=== PATIENT | male | born 1990 | race Two or more races ===

== ENCOUNTER 2017-05-07 17:32 | Inpatient (IN) | payer BC, OTHER ==
[~2017-05-07] VITALS: Ht 182.9 cm; Wt 81.6 kg
[~2017-05-07 17:32] MED LIST: Baclofen PO; CLON0.1T14 PO; Cephalexin Monohydrate PO; DICY20TA28 PO; Gabapentin PO; HYDR-3895 PO; IBUP-1955 PO; LACT1CAP57 PO; METH-33 PO
[2017-05-07] MEDS ORDERED: MAG HYDROX/AL HYDROX/SIMETH 30 ML LIQUID UDC PO PRN (18:15)
[2017-05-07] MEDS ORDERED: BUPRENORPHINE HCL 2 MG TAB.SUBL SL PRN (18:15)
[2017-05-07] MEDS ORDERED: MAGNESIUM HYDROXIDE 30 ML LIQUID UDC PO PRN (18:15)
[2017-05-07] MEDS ORDERED: LORAZEPAM 2 MG/1 ML VIAL IM PRN (18:15)
[2017-05-07] MEDS ORDERED: ONDANSETRON 4 MG/2 ML VIAL IV PRN (18:15)
[2017-05-07] MEDS ORDERED: ACETAMINOPHEN 325 MG TABLET PO PRN (18:15)
[2017-05-07] MEDS ORDERED: LORAZEPAM 1 MG TABLET PO PRN (18:15)
[2017-05-07] MEDS ORDERED: MIRALAX 17 GM POWD.PACK PO PRN (18:15)
[2017-05-07] MEDS ORDERED: LOPERAMIDE HCL 2 MG CAPSULE PO PRN ×2 (18:15)
[2017-05-07] MEDS ORDERED: DICYCLOMINE HCL 20 MG TABLET PO PRN (18:15)
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
[2017-05-07] MEDS: BUPRENORPHINE HCL 2 MG TAB.SUBL SL SCH ×2 (19:00→22:00)
[2017-05-07 20:00] VITALS: BP 113/67
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
--- NOTE | 2017-05-07 20:03 | NUR ---
PRN Zofran Patient reports episode of vomiting and still noted with nausea. Abdomen soft & non-distended. No diarrhea/constipation noted. PRN Zofran administered as ordered. Will continue to monitor.
--- NOTE | 2017-05-07 20:31 | NUR ---
PRN Reassessment Pt verbalized improved nausea after medication administration. No episode of vomiting noted at this time. Will continue to monitor patient.
[2017-05-07] MEDS ORDERED: GABAPENTIN 300 MG CAPSULE PO SCH (21:00)
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
[2017-05-07] MEDS: LORAZEPAM 1 MG TABLET PO SCH ×2 (21:11→22:47)
[2017-05-07 22:45] VITALS: BP 112/79
[2017-05-07] MEDS: CLONIDINE HCL 0.1 MG TABLET PO PRN (22:57)
[2017-05-07] MEDS: GABAPENTIN 400 MG CAPSULE PO SCH (22:57)
--- NOTE | 2017-05-07 22:57 | NUR ---
PRN Clonidine and Bentyl Patient is diaphoretic, reports chills, stomach cramps and anxiety. Vitals taken. B/P 112/79, IA 97. PRN Clonidine & Bentyl administered as ordered. Will continue to monitor patient.
--- NOTE | 2017-05-07 23:00 | NUR ---
IV Insertion 22 Gauge Peripheral IV inserted on right upper arm. Insertion successful after two tries with good blood return. Iv access is patent and flushes easily with no c/o discomfort from pt. Tegaderm dressing applied. Started pt on 0.9%NS @ 125 ml/hr for hydration as ordered. Pt stable at this time.
[2017-05-07] MEDS: PANTOPRAZOLE SODIUM 40 MG VIAL IV SCH (23:21)
[2017-05-07] MEDS: IV NS 1000 ML 1,000 ML IV PRN (23:23)
[2017-05-07] MEDS ORDERED: CHLO750T PO (23:56)
--- NOTE | 2017-05-07 23:57 | NUR ---
PRN Reassessment Patient verbalized decreased in sweating & chills, reports relief from stomach cramps but still noted with anxious/irritable mood. Safety measures in place. Will continue to monitor patient.
[2017-05-08] VITALS: BP 117/68
[2017-05-08 00:08] LABS: *AMPHETAMINE, URINE POSITIVE (NEGATIVE); *BARBITURATE, URINE NEGATIVE (NEGATIVE); *CANNABINOID, URINE POSITIVE (NEGATIVE); *COCCAINE, URINE POSITIVE (NEGATIVE); *OPIATE, URINE POSITIVE (NEGATIVE); *PHENCYCLIDINE SCREEN,URINE NEGATIVE (NEGATIVE)
[2017-05-08 00:28] LABS: WHITE BLOOD COUNT (AUTO) 7.3 K/uL (3.6-10.2)
[2017-05-08 00:29] LABS: BASOPHILS % (AUTO) 0.5 % (0.0-2.0); EOSINOPHILS # (AUTO) 0.2 K/uL (0.0-0.7); EOSINOPHILS % (AUTO) 2.5 % (0.0-7.0); HEMOGLOBIN 13.4 g/dL (12.5-16.3); LYMPHOCYTES # (AUTO) 1.9 K/uL (20.0-40.0); LYMPHOCYTES % (AUTO) 25.8 % (20.5-51.5); MEAN CORPUSCULAR HEMOGLOBIN 29.7 uug (23.8-33.4); MEAN CORPUSCULAR HGB CONC 35 g/dL (32.5-36.3); MEAN CORPUSCULAR VOLUME 84.2 fL (73.0-96.2); MONOCYTES # (AUTO) 0.7 K/uL (2.0-10.0); MONOCYTES % (AUTO) 9.3 % (0.0-11.0); NEUTROPHILS # (AUTO) 4.5 K/uL (1.8-8.9); NEUTROPHILS % (AUTO) 61.9 % (38.5-71.5); PLATELET COUNT (AUTO) 228 K/uL (152-348); RED BLOOD CELL COUNT(AUTO) 4.52 MIL/uL (4.06-5.63)
[2017-05-08] MEDS: LORAZEPAM 1 MG TABLET PO PRN ×2 (00:29→22:44)
[2017-05-08] MEDS: ONDANSETRON ODT 4 MG TAB.RAPDIS SL PRN ×3 (00:30→20:40)
--- NOTE | 2017-05-08 00:30 | NUR ---
PRN Ativan & Zofran SL Patient came back from smoking break via wheelchair and reports feelings of nausea, dizziness & anxiety. Patient stated " I feel like I'm gonna have a panic attack. Vitals WNL. COWS 14 CIWA 17. PRN Ativan 2mg and Zofran SL administered as ordered. Pt was offered Subutex but refused, pt stated "I think its still too early to take it" Explained pt that pt is already withdrawing and Subutex will help him feel better but still refused. Dr. Yanez is aware. Will continue to monitor patient.
[2017-05-08 00:48] LABS: ALANINE AMINOTRANSFERASE 63 U/L (16-63); ALKALINE PHOSPHATASE 93 U/L (50-136); ASPARTATE AMINOTRANSFERASE 51 U/L (15-37); BILIRUBIN,TOTAL 0.7 mg/dL (0.2-1.0); CARBON DIOXIDE 28 mmol/L (21-32); CHLORIDE 97 mmol/L (98-107); CREATININE 0.9 mg/dL (0.6-1.3); GLUCOSE 83 mg/dL (74-106); MAGNESIUM 1.7 mg/dL (1.8-2.4); POTASSIUM 3.6 mmol/L (3.5-5.1); TOTAL PROTEIN, SERUM 7.5 g/dL (6.4-8.2); UREA NITROGEN, BLOOD 17 mg/dL (7-18)
--- NOTE | 2017-05-08 01:30 | NUR ---
PRN Reassessment Patient asleep in bed at this time and appears comfortable. No facial grimacimg noted. Vitals noted WNL. Unabel to assess COWS/CIWA at this time. IV continuously running at 125cc/hr. Will continue to monitor patient.
[2017-05-08 01:36] LABS: ETHANOL < 3 MG/DL (0-0)
[2017-05-08 04:00] VITALS: BP 100/48
--- NOTE | 2017-05-08 07:21 | NUR ---
End of Shift Note: Patient is a 26 y.o male admitted yesterday 05/07/17 for medically supervised withdrawal from multi substance use. Patient remained alert & oriented x4. Patient presented with diaphoresis, chills, body aches, nausea/vomiting, anxiety, fine tremors and sensitivity to light. Patient started on Ativan taper and tolerated well. Initial COWS 13 CIWA 16. Pt refused to start Subutex taper, per pt "it's still too early to start". Pt received PRN Zofran IV, Clonidine, Bentyl, Ativan, & Zofran SL during my shift and were effective. Last COWS 14 CIWA 17 at 0000. Patient has 22 gauge IV access with running 0.9% NS at 125 cc/hr patent and intact. Pt has an surgical wound on his left foot with dressing intact. Keep foot elevated while in bed. Patient ambulates via wheelchair. Pt's vitals remained WNL. Will continue to closely monitor s/s of withdrawal. Pt slept for a total of 4 hours. Fluid intake: 1096 ml. Voided 1x with no bowel movement during my shift. All needs attended. Safety measures in place. Will endorse to day shift nurse.
--- NOTE | 2017-05-08 07:56 | NUR ---
Start of shift- Pt is a 26 y/o male admitted for medically supervised withdrawal from multi substance use. Patient remained alert & oriented x4. Patient presented with diaphoresis, chills, body aches, nausea/vomiting, anxiety, fine tremors and sensitivity to light. Patient started on Ativan taper and tolerated well. Pt refused Subutex at this time. At 2400 last COWS 14 CIWA 17. Pt received PRN Zofran IV, Clonidine, Bentyl, Ativan, & Zofran SL last night. Pt has #22 gauge IV access with running 0.9% NS at 125 cc/hr patent and intact. Pt has an surgical wound on his left foot with dressing intact. Keep foot elevated while in bed. Patient ambulates via wheelchair. Pt's vitals remained WNL. NKA, FULL CODE. Hx seizures. Pt slept for a total of 4 hours. Safety measures in place. Will continue to closely monitor s/s of withdrawal.
[2017-05-08 08:00] VITALS: BP 100/50
[2017-05-08] MEDS: BUPRENORPHINE HCL 2 MG TAB.SUBL SL SCH ×4 (09:00→21:03)
[2017-05-08] MEDS ORDERED: TUBERCULIN,PURIF.PROT.DERIV. 5 TU/0.1 ML TEST ID ONE (09:00)
[2017-05-08] MEDS ORDERED: MAGNESIUM OXIDE 400 MG TABLET PO ONE (09:00)
[2017-05-08] MEDS: IV NS 1000 ML 1,000 ML IV PRN (09:17)
[2017-05-08] MEDS: PANTOPRAZOLE SODIUM 40 MG VIAL IV SCH (09:19)
--- NOTE | 2017-05-08 09:20 | NUR ---
Pt refused Subutex 4 mg. COWS 11.
--- NOTE | 2017-05-08 09:21 | NUR ---
PRN MOTRIN 600MG, ROBAXIN 750MG- Pt c/o generalized pain #7/10 over body and left foot. C/O myalgias.
[2017-05-08] MEDS: IBUPROFEN 600 MG TABLET PO PRN (09:27)
[2017-05-08] MEDS: METHOCARBAMOL 750 MG TABLET PO PRN ×2 (09:27→21:04)
[2017-05-08] MEDS: LORAZEPAM 1 MG TABLET PO SCH ×4 (09:27→21:03)
[2017-05-08] MEDS: GABAPENTIN 400 MG CAPSULE PO SCH (09:27)
--- NOTE | 2017-05-08 10:20 | NUR ---
Reassess - pt asleep resp even and unlabored. Arousable to name and light touch. Lynn, pt states pain now #4/10, Aaron, pt reports myalgias improved.
[2017-05-08 12:00] VITALS: BP 103/52
--- NOTE | 2017-05-08 14:34 | NUR ---
LATE MEDICATION ADMINISTRATION- Ativan 2 mg and Subutex 4 mg given later per patient request. Pt was worried and did not want to start Subutex too soon. Then felt ready at 1430.
--- NOTE | 2017-05-08 14:45 | NUR ---
PRN TORODOL 30 MG for pain in left foot #8
[2017-05-08] MEDS: KETOROLAC TROMETHAMINE 30 MG INJ IM PRN ×2 (14:46→22:46)
--- NOTE | 2017-05-08 15:45 | NUR ---
Reassess Toradol- Pt states pain now #6-7/10. Slightly improved.
[2017-05-08 16:00] VITALS: BP 95/54
--- NOTE | 2017-05-08 16:15 | NUR ---
PRN ZOFRAN 4 MG SL- pt nauseated and pale. Put patient from wheel chair to bed.
--- NOTE | 2017-05-08 17:15 | NUR ---
Reassess Zofran- pt asleep in bed, arousable to name and light touch. No emesis, nausea improved.
--- NOTE | 2017-05-08 17:43 | NUR ---
HOLD ATIVAN & SUBUTEX- Pt too sedated, responds to name and gentle touch. BP low 95/54, HR78. Resp even and unlabored. Resp 16, sat 100%
--- NOTE | 2017-05-08 18:44 | NUR ---
End of shift- Pt is a 26 y/o male admitted for medically supervised withdrawal from multi substance use. Patient presented today with diaphoresis, chills, body aches, nausea/vomiting, anxiety, fine tremors and sensitivity to light. Patient started on Ativan taper and tolerated well. Pt refused morning Subutex but took afternoon dose. At 1600 last COWS 9 CIWA 11. Pt received PRN Zofran SL, Motrin, Robaxin, and Toradol IM. Pt still has nausea no episodes of emesis. Appetite poor today. Pt has #22 gauge IV access right upper arm infusing 0.9% NS at 125 cc/hr patent and intact. Pt has an surgical wound on his left foot with dressing intact. Pt refuses for staff to assess wound. Keeps foot elevated while in bed. Patient uses wheelchair to go to [facility] and move around the unit. Pt's vitals remained WNL. NKA, FULL CODE. Hx seizures, seizure precautions. PO fluid intake 1949ml, void X2. No BM. Safety measures in place. Will endorse to PM shift.
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
[2017-05-08 20:00] VITALS: BP 101/60
--- NOTE | 2017-05-08 21:00 | NUR ---
PRN Zofran, ROBAXIN Pt. complains of nausea, headache and muscle spasm. PRN Zofran, ROBAXIN given as ordered. Safety measures in place : bed on lowest position with side rails x2 up for safety, call light within reach. Will continue to monitor closely and offer help.
[2017-05-08] MEDS: GABAPENTIN 300 MG CAPSULE PO SCH (21:04)
--- NOTE | 2017-05-08 22:00 | NUR ---
RE-ASSESSMENT ANNABELLE Worthy Pt. is sleeping, RR=16, unlabored and even . Safety measures in place : bed on lowest position with side rails x2 up for safety, call light within reach. Will continue to monitor closely and offer help.
--- NOTE | 2017-05-08 22:00 | NUR ---
Left foot assessment - REFUSED ; IV drip - REFUSED. Pt. refused Left foot assessment and possible dressing change. He states he has appointment for dressing change with his surgeon at [facility] on May 10, 2017. He will talk about this appointment to tomorrow in A.M. Pt. also refused IV drip till A.M. Educated patient regarding the importance of compliance to treatment and medication regime. Encouraged patient to participate in group therapies and verbalize feelings.
[2017-05-08] MEDS ORDERED: BUPRENORPHINE HCL 2 MG TAB.SUBL SL ONE (22:30)
--- NOTE | 2017-05-08 22:30 | NUR ---
PRN ATIVAN (CIWA=15), TORADOL IM, ONCE - SUBUTEX 4mg (COWS=13) Pt. is restless, agitated, cont. asking for additional dose of Subutex, CIWA=15, COWS=13 complains of nausea, headache pain in the left leg 8/. PRN ATIVAN (CIWA=15), TORADOL IM, ONCE - SUBUTEX 4mg (COWS=13) given as ordered. Safety measures in place : bed on lowest position with side rails x2 up for safety, call light within reach. Will continue to monitor closely and offer help.
--- NOTE | 2017-05-08 23:30 | NUR ---
RE-ASSESSMENT ATIVAN (CIWA=15), TORADOL IM, ONCE - SUBUTEX 4mg (COWS=13) Pt. is sleeping, RR=16, unlabored and even . Safety measures in place : bed on lowest position with side rails x2 up for safety, call light within reach. Will continue to monitor closely and offer help.
[2017-05-09 04:00] VITALS: BP 95/65
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
[2017-05-09] MEDS: PANTOPRAZOLE SODIUM 40 MG TABLET.DR PO SCH (07:15)
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
[2017-05-09 08:00] VITALS: BP 121/66
[2017-05-09] MEDS: KETOROLAC TROMETHAMINE 30 MG INJ IM PRN ×2 (08:21→15:05)
[2017-05-09] MEDS: METHOCARBAMOL 750 MG TABLET PO PRN (08:21)
[2017-05-09] MEDS: GABAPENTIN 300 MG CAPSULE PO SCH ×3 (08:21→21:40)
[2017-05-09] MEDS: ONDANSETRON ODT 4 MG TAB.RAPDIS SL PRN ×2 (08:22→16:14)
[2017-05-09] MEDS: LORAZEPAM 1 MG TABLET PO SCH ×3 (08:22→21:40)
[2017-05-09] MEDS: BUPRENORPHINE HCL 2 MG TAB.SUBL SL SCH ×3 (08:23→21:41)
--- NOTE | 2017-05-09 08:29 | NUR ---
PRN TORADOL 30 MG IM for pain #8-9/10 in left foot and generalized body pain. PRN ROBAXIN 750 MG PO for malaise and general body aches. PRN ZOFRAN 4 MG SL for nausea. No emesis.
--- NOTE | 2017-05-09 09:30 | NUR ---
Reassess Toradol, pt states pain not resolved, still #8/10. Robaxin not effective per Pt, still has body aches. Zofran minimally affective, still has some nausea. Offered Tylenol PRN he declined at this time.
[2017-05-09 10:08] LABS: HEPATITIS B SURFACE AG Negative (Negative)
[2017-05-09 11:15] LABS: BASOPHILS # (AUTO) 0.1 K/uL (0.0-8.0); BASOPHILS % (AUTO) 0.7 % (0.0-2.0); EOSINOPHILS # (AUTO) 0.4 K/uL (0.0-0.7); EOSINOPHILS % (AUTO) 4.9 % (0.0-7.0); HEMATOCRIT 38.7 % (36.7-47.1); HEMOGLOBIN 13.4 g/dL (12.5-16.3); LYMPHOCYTES # (AUTO) 2.4 K/uL (20.0-40.0); LYMPHOCYTES % (AUTO) 29.7 % (20.5-51.5); MEAN CORPUSCULAR HEMOGLOBIN 29.8 uug (23.8-33.4); MEAN CORPUSCULAR HGB CONC 35 g/dL (32.5-36.3); MEAN CORPUSCULAR VOLUME 86.3 fL (73.0-96.2); MONOCYTES # (AUTO) 0.6 K/uL (2.0-10.0); MONOCYTES % (AUTO) 7.8 % (0.0-11.0); NEUTROPHILS # (AUTO) 4.6 K/uL (1.8-8.9); NEUTROPHILS % (AUTO) 56.9 % (38.5-71.5); PLATELET COUNT (AUTO) 208 K/uL (152-348); RED BLOOD CELL COUNT(AUTO) 4.48 MIL/uL (4.06-5.63); WHITE BLOOD COUNT (AUTO) 8.1 K/uL (3.6-10.2)
--- NOTE | 2017-05-09 11:20 | NUR ---
Pt irritable, labile, loud and swearing at staff. Requests extra dose of Subutex. Does not like taper protocol. Pt spoke to Dr. Yanez, agreed to have labs drawn then extra medication will be ordered. Pt spoke to Shruti, and then went to smoke. Calmer, but still upset.
[2017-05-09] MEDS ORDERED: BUPRENORPHINE HCL 2 MG TAB.SUBL SL ONE (11:30)
[2017-05-09 11:35] LABS: BILIRUBIN,DIRECT 0.1 mg/dL (0.0-0.2); BILIRUBIN,TOTAL 0.5 mg/dL (0.2-1.0); MAGNESIUM 1.8 mg/dL (1.8-2.4); POTASSIUM 4.5 mmol/L (3.5-5.1); TOTAL PROTEIN, SERUM 6.9 g/dL (6.4-8.2)
[2017-05-09 12:00] VITALS: BP 94/58
[2017-05-09 14:52] VITALS: BP 100/52
--- NOTE | 2017-05-09 15:08 | NUR ---
PRN TORADOL 30MG IM for left ankle pain #9/10.
--- NOTE | 2017-05-09 15:25 | NUR ---
Left ankle surgical site- Pt allowed nurse to look at surgical incision. The surgical site has sutures 8 cm along base of foot and 6 cm curved up side of foot. Skin is dry and peeling. Part of incision exposed, red, yellow pus. Skin has seperated from the sutures. Incision site slight odor. Swab taken for culture. Non stick dressing applied, wrapped with Kerlex gauze. Reapplied foot splint and wraped venu bandage around to hold dressing in place. MD notified insicion site was assessed.
[2017-05-09 16:00] VITALS: BP 93/58
--- NOTE | 2017-05-09 16:00 | NUR ---
Reassess Toradol- Pt pain decreased to #7/10. Effective.
--- NOTE | 2017-05-09 16:15 | NUR ---
PRN ZOFRAN 4 MG SL for nausea. No emesis.
--- NOTE | 2017-05-09 17:17 | NUR ---
Reassess Zofran- Pt asleep, resp even and unlabored, VSS. No emesis.
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
[2017-05-09 20:00] VITALS: BP 95/60
[2017-05-09] MEDS: diphenhydrAMINE 50 MG CAPSULE PO PRN (21:40)
[2017-05-09] MEDS: CLONIDINE HCL 0.1 MG TABLET PO PRN (21:41)
[2017-05-10] VITALS: BP 98/62
--- NOTE | 2017-05-10 | NUR ---
NURSING NOTES : Pt. took all his evening medication at midnight, previously refused.He agrees with IV drip, NS at 125ml/h re-started. Pt. ate his dinner with 500ml liquids. He also went smoke on the wheelchair and then went to the bed. The room is dirty and nasty, cloth and linens are everywhere on the floor, the bed is unmade.
--- NOTE | 2017-05-10 | NUR ---
PRN CATAPRES, BENADRYL Pt. complains of difficulty falling asleep, insomnia, increased level of anxiety. PRN CATAPRES, BENADRYL given as ordered. Safety measures in place : bed on lowest position with side rails x2 up for safety, call light within reach. Will continue to monitor closely and offer help.
--- NOTE | 2017-05-10 01:00 | NUR ---
RE-ASSESSMENT AILEEN ROACH Pt. is sleeping, RR=16, unlabored and even . Safety measures in place : bed on lowest position with side rails x2 up for safety, call light within reach. Will continue to monitor closely and offer help.
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
[2017-05-10] MEDS: PANTOPRAZOLE SODIUM 40 MG TABLET.DR PO SCH (07:19)
[2017-05-10 08:00] VITALS: BP 113/57
--- NOTE | 2017-05-10 08:20 | NUR ---
START OF SHIFT: RECEIVED PT LAYING IN BED ASLEEP. HE IS EASILY AROUSED AND SHOUTS" LEAVE ME ALONE AND LET ME SLEEP". WILL ALLOW PT TO SLEEP AND ATTEMPT ASSESSMENT AND MED ADMINISTRATION A BIT LATER. BED LOCKED AND LOW. CALL FLETCHER IN REACH.
[2017-05-10] MEDS ORDERED: BUPRENORPHINE HCL 2 MG TAB.SUBL SL SCH (09:00)
[2017-05-10] MEDS ORDERED: LORAZEPAM 1 MG TABLET PO SCH ×2 (09:00→21:00)
--- NOTE | 2017-05-10 10:00 | NUR ---
Therapist prompted client about group times. Client stated he will attend groups today.
--- NOTE | 2017-05-10 10:05 | NUR ---
PT IS A/O X 4. HE PRESENTS WITH ANGRY MOOD AND AGITATED AFFECT. ATIVAN/SUBUTEX TAPER IN PROGRESS TO MANAGE S/S OF W/D WHICH HE REPORTS BEING BODY ACHES,CHILLS,SWEATS,RESTLESSNESS, IRRITABILITY AND ANXIETY. COWS 8 CIWA 6. MEDICATED ORDERED. HE IS REFUSING IV FLUIDS AND STATES HE WILL INCREASE PO FLUIDS. SX PRECAUTIONS IN PLACE. ENCOURAGED GROUP ATTENDANCE TO IMPROVE COPING SKILLS AND PREVENT RELAPSE. WILL CONTINUE TO MONITOR AND MANAGE S/S OF W/D.
[2017-05-10] MEDS: GABAPENTIN 300 MG CAPSULE PO SCH ×3 (10:10→21:09)
[2017-05-10] MEDS: ONDANSETRON ODT 4 MG TAB.RAPDIS SL PRN (11:11)
[2017-05-10] MEDS: KETOROLAC TROMETHAMINE 30 MG INJ IM PRN ×2 (11:12→21:37)
--- NOTE | 2017-05-10 11:15 | NUR ---
PRN PT REPORTS NAUSEA AND PAIN TO L FOOT 8/10. HE DENIES VOMITING. PRN ZOFRAN ODT AND PRN TORADOL IM ADMINISTERED. WILL MONITOR EFFECTIVENESS.
[2017-05-10 12:00] VITALS: BP 116/75
--- NOTE | 2017-05-10 12:15 | NUR ---
PT STATES THE ZOFRAN WAS EFFECTIVE.HE REPORTS THE TORADOL WAS ONLY MILDLY EFFECTIVE. PAIN 6/10 ON SCALE.
--- NOTE | 2017-05-10 12:30 | NUR ---
IV FLUIDS DISCONTINUED PER MD. SALINE LOCK LEFT IN PLACE PER PHILOSOPHY LECTURER.
[2017-05-10] MEDS: LORAZEPAM 1 MG TABLET PO SCH ×2 (12:51→17:47)
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
[2017-05-10] MEDS: LORZONE PO PRN (14:32)
[2017-05-10] MEDS: IBUPROFEN 600 MG TABLET PO PRN (14:33)
[2017-05-10] MEDS: BUPRENORPHINE HCL 2 MG TAB.SUBL SL SCH ×2 (14:35→21:08)
--- NOTE | 2017-05-10 14:35 | NUR ---
WOUND CLEANSED AND DRESSING CHANGES WITH WOUND NURSE ASSISTING. PRN MOTRIN AND LORZONE GIVEN FOR PAIN 08/31. WILL MONITOR EFFECTIVENESS OF PRN.
[2017-05-10] MEDS ORDERED: BUPRENORPHINE HCL 2 MG TAB.SUBL SL PRN (14:45)
[2017-05-10 16:00] VITALS: BP 114/63
[2017-05-10] MEDS ORDERED: LORAZEPAM 1 MG TABLET PO ONE (18:45)
[2017-05-10] MEDS ORDERED: HYDROXYZINE PAMOATE 25 MG CAPSULE PO PRN (18:45)
--- NOTE | 2017-05-10 18:50 | NUR ---
ONE TIME DOSE ATIVAN 2 MG PO PER MD FOR S/S OF W/D WHICH INCLUDE AGITATION AND ANXIETY. CIWA 11. WILL ENDORSE EFFECTIVENESS TO ONCOMING NIGHT NURSE.
--- NOTE | 2017-05-10 19:04 | NUR ---
END OF SHIFT: PT CONTINUES ON SUBUTEX/ATIVAN TAPER TO MANAGE S/S OF W/D. HE C/O BODY ACHES,NAUSEA,CHILLS SWEATS AND PT STAYED IN BED MOST OF SHIFT. ONE TIME DOSE OF ATIVAN GIVEN PER MD FOR AGITATION AND ANXIETY CIWA 11. LAST COWS 10. WOUND CONSULT AND DRESSING CHANGE DONE. ZOFRAN GIVEN PRN FOR NAUSEA THIS A.M. AND WA EFFECTIVE. PAIN REPORTED TO L FOOT. TORADOL IM PRN AND MILDLY EFFECTIVE. WILL PASS SHIFT REPORT TO ONCOMING TO ELECTRIC SHAVER MECHANIC NURSE.
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
[2017-05-10 20:00] VITALS: BP 120/71
--- NOTE | 2017-05-10 21:00 | NUR ---
PRN VISTARIL, BENADRYL, TORADOL Pt. complains of difficulty falling asleep, insomnia, increased level of anxiety, pain in the left leg 8/10. PRN VISTARIL, BENADRYL, TORADOL given as ordered. Safety measures in place : bed on lowest position with side rails x2 up for safety, call light within reach. Will continue to monitor closely and offer help.
[2017-05-10] MEDS: diphenhydrAMINE 50 MG CAPSULE PO PRN (21:09)
[2017-05-10] MEDS: CLONIDINE HCL 0.1 MG TABLET PO SCH (21:09)
[2017-05-10] MEDS: BACLOFEN 10 MG TABLET PO SCH (21:09)
--- NOTE | 2017-05-10 22:00 | NUR ---
RE-ASSESSMENT VISTARIL, BENADRYL, TORADOL Pt. is sleeping, RR=16, unlabored and even . Safety measures in place : bed on lowest position with side rails x2 up for safety, call light within reach. Will continue to monitor closely and offer help.
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
[2017-05-11] MEDS: PANTOPRAZOLE SODIUM 40 MG TABLET.DR PO SCH (07:00)
--- NOTE | 2017-05-11 07:30 | NUR ---
START OF SHIFT PT IS LAYING IN BED WITH EYES CLOSED AND APPEARS TO BE SLEEPING. AROUSABLE TO NAME, HOWEVER CLOSED EYES AND DID NOT RESPOND. RESPIRATIONS EVEN AND UNLABORED. SIDE RAILS UPX2, BED IN LOWEST POSITION. CALL LIGHT WITHIN REACH. SAFETY MEASURES IN PLACE. WILL CONTINUE TO MONITOR.
[2017-05-11 08:00] VITALS: BP 97/60
[2017-05-11] MEDS ORDERED: BUPRENORPHINE HCL 2 MG TAB.SUBL SL SCH (09:00)
[2017-05-11] MEDS ORDERED: LORAZEPAM 1 MG TABLET PO SCH ×3 (09:00→21:00)
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
[2017-05-11] MEDS: BACLOFEN 10 MG TABLET PO SCH (09:43)
[2017-05-11] MEDS: GABAPENTIN 300 MG CAPSULE PO SCH ×3 (09:44→20:27)
[2017-05-11] MEDS: CLONIDINE HCL 0.1 MG TABLET PO SCH ×3 (09:47→21:00)
[2017-05-11] MEDS: KETOROLAC TROMETHAMINE 30 MG INJ IM PRN ×2 (10:13→21:41)
[2017-05-11] MEDS ORDERED: IBUPROFEN 800 MG TABLET PO PRN (11:00)
[2017-05-11 12:00] VITALS: BP 100/61
[2017-05-11] MEDS ORDERED: BACLOFEN 20 MG TABLET PO ONE (12:00)
[2017-05-11] MEDS ORDERED: ACETAMINOPHEN 325 MG TABLET PO ONE (12:00)
[2017-05-11] MEDS: BUPRENORPHINE HCL 2 MG TAB.SUBL SL SCH ×3 (12:09→20:03)
[2017-05-11] MEDS: BACLOFEN 20 MG TABLET PO SCH ×2 (14:27→20:26)
[2017-05-11] MEDS: ACETAMINOPHEN 325 MG TABLET PO SCH ×2 (14:28→20:27)
[2017-05-11] MEDS: CLONIDINE HCL 0.1 MG TABLET PO PRN (15:39)
--- NOTE | 2017-05-11 15:39 | NUR ---
PRN PT C/O INCREASED ANXIETY AND FEELING OF PANIC 11/01; PT IS HIGHLY AGITATED, RESTLESS, FIDGETY AND THRASHING AROUND IN BED. CLONIDINE 0.1 MG PO PRN GIVEN. WILL MONITOR FOR EFFECTIVENESS.
[2017-05-11 16:00] VITALS: BP 102/62
[2017-05-11] MEDS ORDERED: LORAZEPAM 1 MG TABLET PO ONE (16:45)
--- NOTE | 2017-05-11 16:45 | NUR ---
PT C/O INTENSE PANIC-LIKE FEELING, HIGH ANXIETY, PT IS RESTLESS AND TOSSING AND TURNING IN BED WHILE MOANING. MD NOTIFIED; ATIVAN 2 MG X1 ORDERED. SAFETY MEASURES IN PLACE. WILL CONTINUE TO MONITOR.
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
[2017-05-11] MEDS ORDERED: LEVOFLOXACIN 500 MG TABLET PO SCH (19:00)
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
[2017-05-11 20:00] VITALS: BP 112/53
--- NOTE | 2017-05-11 20:11 | NUR ---
END OF SHIFT PT'S LAST COWS 13 AND CIWA 15. PT IS HIGHLY ANXIOUS, AGITATION, RESTLESS, DEMANDING. MD ORDERED ATIVAN 2 MG X1 DURING SHIFT. WOUND DRESSING CHANGED DURING SHIFT; DRY AND INTACT. PT HAS BEEN GIVEN TORADOL IM INJ PRN, CLONIDINE 0.1 MG PO PRNS DURING SHIFT. PODIATRY CONSULT SEEN; SEE ORDERS. PT WAS DEMANDING AMA PAPERWORK IN AM BUT WAS ABLE TO BE REDIRECTED BY MD AND STAFF. SAFETY MEASURES IN PLACE. WILL GIVE ENDORSEMENT TO GRAIN LOADER NURSE.
[2017-05-11] MEDS: DOXYCYCLINE HYCLATE 100 MG TABLET PO SCH (20:26)
[2017-05-11] MEDS: LACTOBACILLUS RHAMNOSUS GG 1 EACH CAPSULE PO SCH (20:26)
[2017-05-11] MEDS: LORZONE PO PRN (20:29)
--- NOTE | 2017-05-11 20:29 | NUR ---
Lorzone PRN: Pt c/o generalized muscle spasms. Pain level 10/10. Lorzone PRN given as ordered in addition to night time medications.
[2017-05-11] MEDS: ONDANSETRON 4 MG/2 ML VIAL IM PRN (21:41)
--- NOTE | 2017-05-11 21:41 | NUR ---
Lorzone Reassessment and Toradol, Zofran PRN: Pt still c/o 10/10 generalized muscle and left foot pain. Lorzone ineffective. 30mg Toradol IM PRN given as ordered. Pt also c/o nausea. Pt reported no episodes of vomiting but requested to take IM shot. Pt stated "I don't want to throw up the medications I just took". 4mg Zofran IM PRN given as ordered.
--- NOTE | 2017-05-11 22:15 | NUR ---
Toradol and Zofran Reassessment: Pt in bed with eyes closed. No facial grimacing. Upon assessment, pt stated he feels a lot better. Pt also reported relief from nausea. Toradol and Zofran effective.
[2017-05-12] VITALS: BP 98/54
[2017-05-12 04:00] VITALS: BP 106/66
--- NOTE | 2017-05-12 04:00 | NUR ---
Toradol and Clonidine PRN Pt woke up and c/o 10/10 generalized body and left foot pain. Pt stated that he can feel withdrawal symptoms. COWS 19 CIWA 11. Educated about plan of care regarding Subutex schedule but pt remains passive. Pt stated he also felt anxious because of his withdrawal symptoms. 30mg Toradol IM PRN given for pain and 0.1mg Clonidine PO PRN given for anxiety. Will continue to monitor.
[2017-05-12] MEDS: KETOROLAC TROMETHAMINE 30 MG INJ IM PRN (04:07)
[2017-05-12] MEDS: CLONIDINE HCL 0.1 MG TABLET PO PRN (04:07)
[2017-05-12] MEDS ORDERED: BUPRENORPHINE HCL 2 MG TAB.SUBL SL ONE (04:30)
--- NOTE | 2017-05-12 04:30 | NUR ---
Toradol Reassessment: Pt still c/o 12/01 pain. Pt stated "none of these medications are working, I'm feeling withdrawal symptoms." Allowed pt to verbalize feelings.
--- NOTE | 2017-05-12 04:30 | NUR ---
RN note Subutex Subutex 4 mg SL one-time dose ordered for COWS=16 and with generalized pain=10/.
--- NOTE | 2017-05-12 04:52 | NUR ---
Subutex ONE TIME: 4mg Subutex ONE TIME given. Will continue to monitor.
[2017-05-12 05:00] VITALS: BP 105/68
--- NOTE | 2017-05-12 05:30 | NUR ---
Subutex Reassessment: Pt stated he feels better. COWS 12 CIWA 8. Subutex effective.
[2017-05-12] MEDS: PANTOPRAZOLE SODIUM 40 MG TABLET.DR PO SCH (06:43)
--- NOTE | 2017-05-12 07:25 | NUR ---
End of Shift Notes: Pt currently in bed with eyes closed. Pt slept for 6 hours. Pts last COWS was 12 and CIWA was 8 at 1999. Pt currently on ativan and subutex taper to manage withdrawal symptoms. Pt c/o pain, Toradol IM and Lorzone given as ordered twice. Pt c/o nausea, Zofran IM given as ordered. Pt c/o anxiety, Clonidine given as ordered. Pt received additional Subutex during shift to manage increased COWS of 19. Fall and Sz precautions observed. Bed in lowest position. Side rails up x2. Call light functioning and within reach. All needs attended and met. Will endorse to day shift nurse.
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
[2017-05-12 08:00] VITALS: BP 105/68
[2017-05-12] MEDS ORDERED: SODIUM HYPOCHLORITE 0.125% 473 ML BOTTLE TP SCH (09:00)
[2017-05-12] MEDS ORDERED: LORAZEPAM 1 MG TABLET PO SCH ×2 (09:00→11:00)
[2017-05-12] MEDS ORDERED: GENTAMICIN SULFATE 0.1% OINT 15 GM TUBE TOP SCH (09:00)
[2017-05-12] MEDS ORDERED: BUPRENORPHINE HCL 2 MG TAB.SUBL SL SCH ×2 (09:00)
[2017-05-12] MEDS: BACLOFEN 20 MG TABLET PO SCH (09:04)
[2017-05-12] MEDS: GABAPENTIN 300 MG CAPSULE PO SCH (09:04)
[2017-05-12] MEDS: CLONIDINE HCL 0.1 MG TABLET PO SCH (09:05)
[2017-05-12] MEDS: LACTOBACILLUS RHAMNOSUS GG 1 EACH CAPSULE PO SCH (09:05)
[2017-05-12] MEDS: DOXYCYCLINE HYCLATE 100 MG TABLET PO SCH (09:05)
[2017-05-12] MEDS: ACETAMINOPHEN 325 MG TABLET PO SCH (09:05)
[2017-05-12] MEDS: ONDANSETRON 4 MG/2 ML VIAL IM PRN ×2 (09:55→10:49)
--- NOTE | 2017-05-12 10:49 | NUR ---
PRN MED. Pt had an episode of vomiting, pt vomited once, PRN Zofran IM administered in left arm, no blood return upon aspiration. Pt tolerated well, all needs met will continue to monitor.
[2017-05-12] MEDS: BUPRENORPHINE HCL 2 MG TAB.SUBL SL SCH ×2 (11:00→11:24)
[2017-05-12 12:00] VITALS: BP 124/79
--- NOTE | 2017-05-12 12:56 | NUR ---
PRN REASSESSMENT Medication effective, pt no longer vomiting and pt reported that he is no longer nauseated, all needs met will continue to monitor Addendum: 05/12/17 at 1257 by FRANKLIN DAVID RN Reassessment was completed at 1146
--- NOTE | 2017-05-12 12:58 | NUR ---
AMA NOTE Pt left AMA, Pt refused to comply with treatment. Pt was educated about the risks and consequences of leaving AMA, Pt verbalized understanding but was adamant about leaving. Multiple staff members including doctor, patient advocate and nurses attempted to reason with pt without any success. VS WNL, skin intact pt denied any suicidal or homicidal ideations. Pt's psychiatrist and MD were notified and aware. Pt was given a list of community resources, AMA forms explained and signed. All belongings returned to pt. Pt left facility AMA on 05/12/17 at 1230.
[2017-05-12] MEDS ORDERED: DICYCLOMINE HCL 20 MG TABLET PO SCH (15:00)
[2017-05-13] MEDS ORDERED: LORAZEPAM 1 MG TABLET PO SCH ×2 (09:00)
[2017-05-13] MEDS ORDERED: BUPRENORPHINE HCL 2 MG TAB.SUBL SL SCH ×2 (09:00)
[2017-05-14] MEDS ORDERED: BUPRENORPHINE HCL 2 MG TAB.SUBL SL SCH (09:00)
[2017-05-14] MEDS ORDERED: LORAZEPAM 1 MG TABLET PO SCH (09:00)
== END 2017-05-12 12:30 | disposition left against medical advice (07) | DRG 894 ==
LOC: SRC 17:32
PROVIDERS: ADMIT Internal Medicine; ATTEND Internal Medicine
PROC: HZ2ZZZZ Detoxification Services for Substance Abuse Treatment (ICD-10-PCS; principal; 2017-05-07)
PROC: HZ31ZZZ Individual Counseling for Substance Abuse Treatment, Behavioral (ICD-10-PCS; 2017-05-10)
DX: F13.232 Sedative, hypnotic or anxiolytic dependence with withdrawal with perceptual disturbance (principal); E87.3 Alkalosis; F14.20 Cocaine dependence, uncomplicated; E83.42 Hypomagnesemia; F11.23 Opioid dependence with withdrawal; F15.23 Other stimulant dependence with withdrawal; F43.10 Post-traumatic stress disorder, unspecified; E86.0 Dehydration; Z81.8 Family history of other mental and behavioral disorders; Z81.4 Family history of other substance abuse and dependence; Z80.9 Family history of malignant neoplasm, unspecified; F17.210 Nicotine dependence, cigarettes, uncomplicated; F32.9 Major depressive disorder, single episode, unspecified; R26.81 Unsteadiness on feet; S92.352G Displaced fracture of fifth metatarsal bone, left foot, subsequent encounter for fracture with delayed healing; V49.9XXD Car occupant (driver) (passenger) injured in unspecified traffic accident, subsequent encounter; Z98.890 Other specified postprocedural states
CPT/HCPCS: 36415; 73630; 80307; 80324; 80349; 80353; 80361; 83735; 85025; 86140; 86580; 86592; 86705; 86803; 87040; 87070; 87077; 87340; 87806; 97116; A4663; C9113; G0480; J1885; J2405; J7030; Q0162; Q0163